=== PATIENT | male | born 1980 | race Caucasian/White ===

== ENCOUNTER 2017-07-09 12:18 | Inpatient (IN) | payer OTHER ==
[2017-07-09 12:44] VITALS: BMI 27.6
--- NOTE | 2017-07-09 17:00 | HP ---
Admission ROS S - [facility] Chief Complaint: I WANT TO GO TO REHAB Allergies/Adverse Reactions: Allergies Allergy/AdvReac Type Severity Reaction Status Date / Time No Known Allergies Allergy Verified 07/09/17 16:33 History of Present Illness: 36 YEARS OLD MALE WITH LONG HISTORY OF COCAINE MARIJUANA NICOTINE DEPENDENCE DENIES MEDICAL ISSUE HAS BIPOLAR II IS ADMITTED TO REHAB Exam Limitations: No Limitations - Ebola screening Have you traveled outside of the country in the last 21 days: No Have you had contact with anyone from an Ebola affected area: No Have you been sick,other than usual withdrawal symptoms: No Do you have a fever: No - Review of Systems Constitutional: Weight Stable EENT: reports: No Symptoms Reported Respiratory: reports: No Symptoms reported Cardiac: reports: No Symptoms Reported GI: reports: No Symptoms Reported : reports: No Symptoms Reported Musculoskeletal: reports: No Symptoms Reported Integumentary: reports: Change in Color (RIGHT INNER FORE ARM SCAR FROM 04/2017 GLASS CUT) Neuro: reports: No Symptoms reported Endocrine: reports: No Symptoms Reported Hematology: reports: No Symptoms Reported Psychiatric: reports: Judgement Intact, Orientated x3, Anxious, Depressed Other Systems: Reviewed and Negative Patient History - Patient Medical History Hx Anemia: No Hx Asthma: No Hx Chronic Obstructive Pulmonary Disease (COPD): No Hx Cancer: Yes (LYMPHOMA 2011 CHEMO) Hx Cardiac Disorders: No Hx Congestive Heart Failure: No Hx Hypertension: No Hx Hypercholesterolemia: No Hx Pacemaker: No HX Cerebrovascular Accident: No Hx Seizures: No Hx Dementia: No Hx Diabetes: No Hx Gastrointestinal Disorders: No Hx Liver Disease: No Hx Genitourinary Disorders: No Hx Sexually Transmitted Disorders: No Hx Renal Disease (ESRD): No Hx Thyroid Disease: No Hx Human Immunodeficiency Virus (HIV): No Hx Hepatitis C: No Hx Depression: No Hx Suicide Attempt: Yes (04/2017 GLASS CUT) Hx Bipolar Disorder: Yes Hx Schizophrenia: No - Patient Surgical History Past Surgical History: No - PPD History Previous Implant?: Yes Documented Results: Negative w/o proof Implanted On Prior [facility] Admission?: No PPD to be Administered?: Yes - Smoking Cessation Smoking history: Current every day smoker Have you smoked in the past 12 months: Yes Aproximately how many cigarettes per day: 20 Cigars Per Day: 0 Hx Chewing Tobacco Use: No Initiated information on smoking cessation: Yes 'Breaking Loose' booklet given: 07/09/17 - Substance & Tx. History Hx Alcohol Use: No Hx Substance Use: Yes Substance Use Type: Cocaine, Marijuana Hx Substance Use Treatment: Yes (02/2017 [facility]) - Substances Abused Marijuana/Hashish Route: Smoking Frequency: Daily Amount used: $50 Age of first use: 18 Date of Last Use: 07/09/17 Alcohol Route: Oral Frequency: 1-2 times per week Amount used: 6pk beers Age of first use: 15 Date of Last Use: 06/25/17 Cocaine Route: Inhalation Frequency: 1-2 times per week Amount used: 1 G Age of first use: 27 Date of Last Use: 06/25/17 Family Disease History - Family Disease History Family Disease History: Heart Disease: Mother, Other: Father () Admission Physical Exam S - Vital Signs Vital Signs: Vital Signs - 24 hr 07/09/17 12:26 Temperature 98.3 F Pulse Rate 118 H Respiratory 20 Rate Blood Pressure 119/76 - Physical General Appearance: Yes: No Apparent Distress, Nourished, Appropriately Dressed HEENTM: Yes: Hearing grossly Normal, Normal ENT Inspection, Normocephalic, Normal Voice Respiratory: Yes: Chest Non-Tender, Lungs Clear, Normal Breath Sounds, No Respiratory Distress, No Accessory Muscle Use Neck: Yes: Supple, Trachea in good position Breast: Yes: Breasts Symetrical Cardiology: Yes: Regular Rhythm, S1, S2, Tachycardia Abdominal: Yes: Normal Bowel Sounds, Non Tender, Soft Genitourinary: Yes: Within Normal Limits Back: Yes: Normal Inspection Musculoskeletal: Yes: full range of Motion, Gait Steady Extremities: Yes: Normal Inspection (SCAR RIGHT FORE ARM), Normal Range of Motion, Non-Tender Neurological: Yes: Fully Oriented, Alert, Motor Strength 5/5, Normal Response, Depressed Affect Integumentary: Yes: Warm, Other (RIGHT ARM SCAR RIGHT LUMBAR SCAR - CHILD WU FALL) Lymphatic: Yes: Within Normal Limits - Diagnostic (1) Cocaine dependence, uncomplicated Current Visit: Yes Status: Acute (2) Cannabis dependence, uncomplicated Current Visit: Yes Status: Acute (3) Nicotine dependence Current Visit: Yes Status: Acute Qualifiers: Nicotine product type: cigarettes Substance use status: in withdrawal Qualified Code(s): F17.213 - Nicotine dependence, cigarettes, with withdrawal (4) Bipolar II disorder Current Visit: Yes Status: Suspected Cleared for Admission [facility] - Detox or Rehab [facility] Level of Care: Observation Bed Detox Regimen/Protocol: Not Applicable Claeared for Rehab Admission: Yes [facility] Breath Alcohol Content Breath Alcohol Content: 0 Urine Drug Screen - Results Drug Screen Negative: No Urine Drug Screen Results: THC-Marijuana
[2017-07-09] MEDS ORDERED: MAGNESIUM HYDROX 2400MG/30ML ORAL SUSPENSION 30 ML CUP PO PRN (17:11)
[2017-07-09] MEDS ORDERED: MAGNESIUM CITRATE 300 ML BOTTLE PO PRN (17:11)
[2017-07-09] MEDS ORDERED: LOPERAMIDE HCL 2 MG CAPSULE PO PRN (17:11)
[2017-07-09] MEDS ORDERED: MENTHOL/PHENOL 1 EACH UD MM PRN (17:11)
[2017-07-09] MEDS ORDERED: hydrOXYzine PAMOATE 50 MG CAPSULE (FP) PO PRN (17:11)
[2017-07-09] MEDS ORDERED: MAG HYDROX/AL HYDROX/SIMETH 30 ML UNIT-DOSE CUP PO PRN (17:11)
[2017-07-09] MEDS ORDERED: guaiFENesin/D-METHORPHAN HB 10 ML UNIT-DOSE CUPS PO PRN (17:11)
[2017-07-09] MEDS ORDERED: ACETAMINOPHEN 325 MG TABLET (FP) PO PRN (17:11)
[2017-07-09] MEDS ORDERED: P-EPHED 60MG/TRIPROLIDI 2.5MG TABLET PO PRN (17:11)
[2017-07-09] MEDS ORDERED: IBUPROFEN 400 MG TABLET (FP) PO PRN (17:11)
--- NOTE | 2017-07-09 17:14 | HP ---
Admission ROS [facility] Allergies/Adverse Reactions: Allergies Allergy/AdvReac Type Severity Reaction Status Date / Time No Known Allergies Allergy Verified 07/09/17 16:33 - Ebola screening Have you traveled outside of the country in the last 21 days: No Have you had contact with anyone from an Ebola affected area: No Have you been sick,other than usual withdrawal symptoms: No Do you have a fever: No Patient History - Patient Medical History Hx Anemia: No Hx Asthma: No Hx Chronic Obstructive Pulmonary Disease (COPD): No Hx Cancer: Yes (LYMPHOMA 2011 CHEMO) Hx Cardiac Disorders: No Hx Congestive Heart Failure: No Hx Hypertension: No Hx Hypercholesterolemia: No Hx Pacemaker: No HX Cerebrovascular Accident: No Hx Seizures: No Hx Dementia: No Hx Diabetes: No Hx Gastrointestinal Disorders: No Hx Liver Disease: No Hx Genitourinary Disorders: No Hx Sexually Transmitted Disorders: No Hx Renal Disease (ESRD): No Hx Thyroid Disease: No Hx Human Immunodeficiency Virus (HIV): No Hx Hepatitis C: No Hx Depression: No Hx Suicide Attempt: Yes (04/2017 GLASS CUT) Hx Bipolar Disorder: Yes Hx Schizophrenia: No - Patient Surgical History Past Surgical History: No - PPD History Previous Implant?: Yes Documented Results: Negative w/o proof Implanted On Prior [facility] Admission?: No - Smoking Cessation Smoking history: Current every day smoker Have you smoked in the past 12 months: Yes Aproximately how many cigarettes per day: 20 Cigars Per Day: 0 Hx Chewing Tobacco Use: No Initiated information on smoking cessation: Yes 'Breaking Loose' booklet given: 07/09/17 - Substances Abused Marijuana/Hashish Route: Smoking Frequency: Daily Amount used: $50 Age of first use: 18 Date of Last Use: 07/09/17 Alcohol Route: Oral Frequency: 1-2 times per week Amount used: 6pk beers Age of first use: 15 Date of Last Use: 06/25/17 Cocaine Route: Inhalation Frequency: 1-2 times per week Amount used: 1 G Age of first use: 27 Date of Last Use: 06/25/17 Family Disease History - Family Disease History Family Disease History: Heart Disease: Mother, Other: Father () Admission Physical Exam S - Vital Signs Vital Signs: Vital Signs - 24 hr 07/09/17 12:26 Temperature 98.3 F Pulse Rate 118 H Respiratory 20 Rate Blood Pressure 119/76 - Diagnostic (1) Cocaine dependence, uncomplicated Current Visit: Yes Status: Acute (2) Cannabis dependence, uncomplicated Current Visit: Yes Status: Acute (3) Nicotine dependence Current Visit: Yes Status: Acute Qualifiers: Nicotine product type: cigarettes Substance use status: in withdrawal Qualified Code(s): F17.213 - Nicotine dependence, cigarettes, with withdrawal (4) Bipolar II disorder Current Visit: Yes Status: Suspected [facility] Breath Alcohol Content Breath Alcohol Content: 0 Urine Drug Screen - Results Drug Screen Negative: No Urine Drug Screen Results: THC-Marijuana Inpatient Rehab Admission - Initial Determination Are CD services needed?: Yes Free of communicable disease: Yes Not in need of hospitalization: Yes - Rehab Admission Criteria Previous failed treatment: Yes Poor recovery environment: Yes Comorbidities: Yes Lacks judgement: No Patient is meeting Inpatient Rehab admission criteria:: Yes
[2017-07-09] MEDS ORDERED: TUBERCULIN PPD 5 TU/0.1ML VIAL ID ONE (20:26)
[2017-07-09] MEDS: THIAMINE HCL 100 MG TABLET (FP) PO SCH (21:33)
[2017-07-09] MEDS: diphenhydrAMINE HCL 50 MG CAPSULE PO PRN (21:33)
[2017-07-09] MEDS: NICOTINE POLACRILEX 4 MG GUM BC PRN (21:37)
[2017-07-09 21:54] LABS: URINE APPEARANCE CLEAR; URINE BILIRUBIN NEGATIVE (NEGATIVE); URINE BLOOD NEGATIVE (NEGATIVE); URINE COLOR STRAW; URINE GLUCOSE (UA) NEGATIVE (NEGATIVE); URINE KETONE NEGATIVE (NEGATIVE); URINE LEUK ESTERASE NEGATIVE (NEGATIVE); URINE NITRITE NEGATIVE (NEGATIVE); URINE PROTEIN NEGATIVE (NEGATIVE); URINE UROBILINOGEN NEGATIVE mg/dL (0.2-1.0)
[2017-07-10 09:46] LABS: MCH 27.1 pg (25.7-33.7); MCHC 33.4 g/dl (32.0-35.9); PLATELET COUNT 225 K/MM3 (134-434); RDW 13.8 % (11.9-15.9); WHITE BLOOD COUNT 8.6 K/mm3 (4.0-10.0)
[2017-07-10 09:53] LABS: ALBUMIN 3.8 g/dl (3.4-5.0); ALK PHOS 70 U/L (45-117); ANION GAP 7 (8-16); BILIRUBIN,TOTAL 0.2 mg/dL (0.2-1.0); CALCIUM 8.7 mg/dL (8.5-10.1); CO2 26 mmol/L (21-32); CREATININE 0.8 mg/dL (0.7-1.3); GLUCOSE,RANDOM 90 mg/dL (74-106); SGOT/AST 18 U/L (15-37); SGPT/ALT 41 U/L (12-78); TOT PROT 7.1 g/dl (6.4-8.2)
--- NOTE | 2017-07-10 09:54 | EKG ---
Test Reason : Blood Pressure : / mmHG Vent. Rate : 065 BPM Atrial Rate : 065 BPM P-R Int : 182 ms QRS Dur : 092 ms QT Int : 406 ms P-R-T Axes : 041 066 028 degrees QTc Int : 422 ms NORMAL SINUS RHYTHM NONSPECIFIC ST ABNORMALITY NO PREVIOUS ECGS AVAILABLE Confirmed by XIOMARA RENDON MD ([id number]) on 07/10/2017 9:54:11 AM Referred By: Kalen SMITH Confirmed By:XIOMARA RENDON MD
[2017-07-10 10:14] LABS: HIV 1 & 2 AB NEGATIVE; HIV 1 AGp24 NEGATIVE
[2017-07-10] MEDS: PRENATAL VITAMINS W/ FOLIC ACID TABLET (FP) PO SCH (10:22)
[2017-07-10] MEDS: NICOTINE 21 MG/24 HOURS TOPICAL PATCH TD SCH (10:22)
[2017-07-10] MEDS: NICOTINE POLACRILEX 4 MG GUM BC PRN ×3 (10:23→21:41)
--- NOTE | 2017-07-10 12:09 | HP ---
Psychiatrist Admission - Data Date of interview: 07/10/17 Admission source: [facility] Identifying data: THis is the first inpatient rehabilitation admisison for this 36 year old marries male father of 2(7 and 13), residing in the [place] with his family , he is unemployed and supported on SSI. Medical History: Reports a good physical health, smokes cigarettes 1 PPD. Psychiatric History: Patient reports extensive history of mental illness, several "more than 20 " psychiatric hospitalizations, first psychiatric admission in 2005 for manic episode, was admitted to [facility], most recent hospitalization 4 weeks ago to [facility] from where was referred to . He reports he belongs to [place] ACT team. he under the care of and on Depakote 500 mg po bid, Prolixin 5 mg po bid and on Prolixin IM injection every 2 weeks, states he had his injection on 07/09/17, but unable to recall the dosage. He reports was diagnosed as Bipolar Disorder. Physical/Sexual Abuse/Trauma History: Denies Vital Signs: Vital Signs - 24 hr 07/09/17 07/10/17 07/10/17 12:26 00:53 03:30 Temperature 98.3 F Pulse Rate 118 H Respiratory 20 16 16 Rate Blood Pressure 119/76 07/10/17 07:17 Temperature 97.4 F L Pulse Rate 65 Respiratory 18 Rate Blood Pressure 101/72 Allergies/Adverse Reactions: Allergies Allergy/AdvReac Type Severity Reaction Status Date / Time No Known Allergies Allergy Verified 07/09/17 16:33 Date of last physical exam: 07/09/17 Concur with the findings of this exam: Yes - Substance Abuse/Tx History Hx Alcohol Use: Yes (on weekend) Hx Substance Use: Yes Substance Use Type: Alcohol (started at age of 15, 6 pcks of beer), Cocaine (1 g 1-2 times per week), Marijuana ("Sometimes") Hx Substance Use Treatment: Yes Mental Status Exam - Mental Status Exam Alert and Oriented to: Time, Place, Person Cognitive Function: Grossly Intact Patient Appearance: Unkempt Affect: Appropriate, Mood Congruent, Blunted, Constricted Patient Behavior: Appropriate, Cooperative Speech Pattern: Clear, Appropriate Voice Loudness: Normal Thought Process: Intact Thought Disorder: Not Present Hallucinations: Denies Suicidal Ideation: Denies Homicidal Ideation: Denies Insight/Judgement: Fair Sleep: Fair Appetite: Fair Muscle strength/Tone: Normal Psychiatric Findings - Problem List ([place] 1, 2,3) (1) Nicotine dependence Current Visit: Yes Status: Acute Qualifiers: Nicotine product type: cigarettes Substance use status: in withdrawal Qualified Code(s): F17.213 - Nicotine dependence, cigarettes, with withdrawal (2) Alcohol dependence Current Visit: Yes Status: Acute (3) Cocaine delirium Current Visit: Yes Status: Acute (4) Cocaine dependence Current Visit: Yes Status: Acute (5) Cannabis abuse Current Visit: Yes Status: Acute (6) Schizoaffective disorder, bipolar type Current Visit: Yes Status: Acute - Initial Treatment Plan Initial Treatment Plan: will continue his current medications, will contact act team to verify dosage of IM injection.
[2017-07-10] MEDS: hydrOXYzine PAMOATE 50 MG CAPSULE (FP) PO SCH (21:40)
[2017-07-10] MEDS: DIVALPROEX SODIUM 500 MG TABLET E.C. PO SCH (21:40)
[2017-07-10] MEDS: THIAMINE HCL 100 MG TABLET (FP) PO SCH (21:40)
[2017-07-11] MEDS: PRENATAL VITAMINS W/ FOLIC ACID TABLET (FP) PO SCH (10:17)
[2017-07-11] MEDS: DIVALPROEX SODIUM 500 MG TABLET E.C. PO SCH ×2 (10:17→21:25)
[2017-07-11] MEDS: NICOTINE 21 MG/24 HOURS TOPICAL PATCH TD SCH (10:18)
[2017-07-11] MEDS: hydrOXYzine PAMOATE 50 MG CAPSULE (FP) PO SCH ×2 (10:18→21:25)
[2017-07-11] MEDS: NICOTINE POLACRILEX 4 MG GUM BC PRN ×4 (10:19→20:02)
[2017-07-11] MEDS: THIAMINE HCL 100 MG TABLET (FP) PO SCH (21:25)
[2017-07-12] MEDS: DIVALPROEX SODIUM 500 MG TABLET E.C. PO SCH ×2 (10:18→21:24)
[2017-07-12] MEDS: hydrOXYzine PAMOATE 50 MG CAPSULE (FP) PO SCH ×2 (10:18→21:24)
[2017-07-12] MEDS: PRENATAL VITAMINS W/ FOLIC ACID TABLET (FP) PO SCH (10:18)
[2017-07-12] MEDS: NICOTINE 21 MG/24 HOURS TOPICAL PATCH TD SCH (10:19)
[2017-07-12] MEDS: NICOTINE POLACRILEX 4 MG GUM BC PRN ×5 (10:20→19:48)
[2017-07-12] MEDS: THIAMINE HCL 100 MG TABLET (FP) PO SCH (21:24)
[2017-07-13] MEDS: diphenhydrAMINE HCL 50 MG CAPSULE PO PRN (01:46)
[2017-07-13 07:36] VITALS: BP 104/74; PULSE 71; TEMP 97.5
[2017-07-13] MEDS: PRENATAL VITAMINS W/ FOLIC ACID TABLET (FP) PO SCH (10:15)
[2017-07-13] MEDS: hydrOXYzine PAMOATE 50 MG CAPSULE (FP) PO SCH (10:15)
[2017-07-13] MEDS: NICOTINE 21 MG/24 HOURS TOPICAL PATCH TD SCH (10:15)
[2017-07-13] MEDS: DIVALPROEX SODIUM 500 MG TABLET E.C. PO SCH (10:15)
--- NOTE | 2017-07-13 11:11 | PN ---
Psychiatric Progress Note Vital Signs: Vital Signs Period Temp Pulse Resp BP Sys/Rodrigues Pulse Ox Last 24 Hr 97.5 F 71-86 16-18 104-135/74-79 Date of Session: 07/13/17 Chief Complaint:: AMA Discharge Note HPI: Patient addressing Alcohol, Cocaine and Cannabis Dependence comorbid with Nicotine Dependence and Schizoaffective Disorder Current Medications: Active Medications Generic Name Dose Route Start Last Admin Trade Name Freq PRN Reason Stop Dose Admin Acetaminophen 650 mg 07/09/17 17:11 Tylenol - PO Q4H PRN PAIN Al Hydroxide/Mg Hydroxide 30 ml 07/09/17 17:11 Mylanta Oral Suspension - PO Q6H PRN DYSPEPSIA Diphenhydramine HCl 50 mg 07/09/17 17:11 07/13/17 01:46 Benadryl - PO 50 mg HSMR1 PRN Administration INSOMNIA Divalproex Sodium 500 mg 07/10/17 22:00 07/13/17 10:15 Depakote - PO 500 mg BID GISELLA Administration Eucalyptus/Menthol/Phenol/Sorbitol 1 each 07/09/17 17:11 Cepastat Lozenge - MM Q4H PRN SORE THROAT Fluphenazine HCl 5 mg 07/10/17 22:00 07/13/17 10:15 Prolixin - PO 5 mg BID GISELLA Administration Guaifenesin 10 ml 07/09/17 17:11 Robitussin Dm - PO Q6H PRN COUGH Hydroxyzine Pamoate 50 mg 07/10/17 22:00 07/13/17 10:15 Vistaril - PO 50 mg BID GISELLA Administration Ibuprofen 400 mg 07/09/17 17:11 Motrin - PO Q6H PRN SEVERE PAIN Loperamide HCl 4 mg 07/09/17 17:11 Imodium - PO Q6H PRN DIARRHEA Magnesium Citrate 300 ml 07/09/17 17:11 Citroma - PO Q48H PRN CONSTIPATION Magnesium Hydroxide 30 ml 07/09/17 17:11 Milk Of Magnesia - PO DAILY PRN CONSTIPATION Nicotine 21 mg 07/10/17 10:00 07/13/17 10:15 Nicoderm Patch - TD 21 mg DAILY GISELLA Administration Nicotine Polacrilex 4 mg 07/09/17 17:11 07/12/17 19:48 Nicorette Gum - BC 4 mg Q2H PRN Administration NICOTINE REPLACEMENT RX Multivit/Folic Acid/Iron 1 tab 07/10/17 10:00 07/13/17 10:15 Vitamins ([facility]) - PO 1 tab DAILY GISELLA Administration Pseudoephedrine/Triprolidine 1 combo 07/09/17 17:11 Actifed - PO TID PRN NASAL CONGESTION Thiamine HCl 100 mg 07/09/17 22:00 07/12/17 21:24 Vitamin B1 - PO 100 mg HS GISELLA Administration Current Side Effect: No Lab tests ordered: Yes Lab tests reviewed: Yes Provider note:: Patient has decided not to complete this program and wants to leave against medical advice citing:"I cannot sleep here". He was at a lost to explain what he meant by it. Patient is determined to leave against medical advice despite encouragement to stay and complete this program. Scripts for 30 days supply of his medications( Depakote 50 mg po BID & Prolixin 5 mg po BID) are electronically transmitted to [facility] at [id number] [place] [address]. He is stablr for discharge AM Total face to face time:: 25 Mental Status Exam - Mental Status Exam Alert and Oriented to: Time, Place, Person Cognitive Function: Fair Mood: Hopeful, Euthymic Affect: Appropriate Patient Behavior: Cooperative Speech Pattern: Clear Voice Loudness: Normal Thought Process: Intact, Goal Oriented Thought Disorder: Not Present Hallucinations: Denies Homicidal Ideation: Denies Insight/Judgement: Poor Sleep: Fair Appetite: Good Muscle strength/Tone: Normal Gait/Station: Normal Psychiatric Treatment Plan - Problem List (1) Alcohol dependence Current Visit: Yes (2) Cocaine dependence Current Visit: Yes (3) Cannabis abuse Current Visit: Yes (4) Nicotine dependence Current Visit: Yes Qualifiers: Nicotine product type: cigarettes Substance use status: in withdrawal Qualified Code(s): F17.213 - Nicotine dependence, cigarettes, with withdrawal; F17.213 - Nicotine dependence, cigarettes, with withdrawal (5) Schizoaffective disorder, bipolar type Current Visit: Yes Initial treatment plan: Patient is leaving AMA
== END 2017-07-13 11:26 | disposition left against medical advice (07) | DRG 894 ==
LOC: YASAS 12:18 → Y5N 16:40
PROVIDERS: ADMIT Psychiatry & Neurology Psychiatry; ATTEND Psychiatry & Neurology Psychiatry
PROC: HZ42ZZZ Group Counseling for Substance Abuse Treatment, Cognitive-Behavioral (ICD-10-PCS; principal; 2017-07-09)
DX: F10.20 Alcohol dependence, uncomplicated (principal); F31.81 Bipolar II disorder; F14.221 Cocaine dependence with intoxication delirium; F12.10 Cannabis abuse, uncomplicated; F17.213 Nicotine dependence, cigarettes, with withdrawal; F25.0 Schizoaffective disorder, bipolar type; Z92.21 Personal history of antineoplastic chemotherapy; Z91.5 Personal history of self-harm; Z85.72 Personal history of non-Hodgkin lymphomas
CPT/HCPCS: 36415; 80053; 80164; 81003; 85027; 86593; 86803; 87389; 93005; 93010

== ENCOUNTER 2020-06-11 17:50 | Inpatient (IN) | payer OTHER ==
[2020-06-11 19:12] VITALS: BMI 23.5
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
[2020-06-11] MEDS ORDERED: ACETAMINOPHEN 325 MG TABLET (FP) PO PRN ×2 (20:32)
[2020-06-11] MEDS ORDERED: MAGNESIUM HYDROX 2400MG/30ML ORAL SUSPENSION 30 ML CUP PO PRN (20:32)
[2020-06-11] MEDS ORDERED: METHOCARBAMOL 500 MG TABLET PO PRN (20:32)
[2020-06-11] MEDS ORDERED: MAG HYDROX/AL HYDROX/SIMETH 30 ML UNIT-DOSE CUP PO PRN (20:32)
[2020-06-11] MEDS ORDERED: MAGNESIUM CITRATE 300 ML BOTTLE PO PRN (20:32)
[2020-06-11] MEDS ORDERED: DICYCLOMINE HCL 10 MG CAPSULE PO PRN (20:32)
[2020-06-11] MEDS ORDERED: guaiFENesin 200 MG/10 ML 10 ML UNIT-DOSE CUPS PO PRN (20:32)
[2020-06-11] MEDS ORDERED: IBUPROFEN 400 MG TABLET (FP) PO PRN (20:32)
[2020-06-11] MEDS ORDERED: hydrOXYzine PAMOATE 25 MG CAPSULE (FP) PO PRN (20:32)
[2020-06-11] MEDS ORDERED: MENTHOL/PHENOL 1 EACH UD MM PRN (20:32)
[2020-06-11] MEDS ORDERED: ONDANSETRON *ODT* 4 MG TABLET SL PRN (20:32)
[2020-06-11] MEDS ORDERED: P-EPHED 60MG/TRIPROLIDI 2.5MG TABLET PO PRN (20:32)
[2020-06-11] MEDS ORDERED: BISMUTH SUBSALICYLATE 524 MG/30 ML UD PO PRN (20:32)
[2020-06-11] MEDS ORDERED: cloNIDine HCL 0.1 MG TABLET PO PRN (20:35)
[2020-06-11] MEDS: diazePAM 5 MG TABLET PO SCH (22:59)
[2020-06-11] MEDS: MELATONIN 5 MG TABLETS PO SCH (22:59)
[2020-06-11] MEDS: THIAMINE HCL 100 MG TABLET (FP) PO SCH (23:00)
[2020-06-12] MEDS: diazePAM 5 MG TABLET PO SCH ×3 (06:33→22:27)
[2020-06-12 10:25] LABS: HEMATOCRIT 41.3 % (35.4-49); HEMOGLOBIN 13.8 GM/dL (11.7-16.9); MCH 27.5 pg (25.7-33.7); MCHC 33.4 g/dl (32.0-35.9); MEAN CELL VOLUME 82.3 fl (80-96); PLATELET COUNT 261 K/MM3 (134-434); RBC 5.02 M/mm3 (4.00-5.60); RDW 13.6 % (11.9-15.9); WHITE BLOOD COUNT 7.9 K/mm3 (4.0-10.0)
[2020-06-12] MEDS: PRENATAL VITAMINS W/ FOLIC ACID TABLET (FP) PO SCH (10:28)
[2020-06-12] MEDS: NICOTINE 21 MG/24 HOURS TOPICAL PATCH TD SCH (10:28)
[2020-06-12 10:36] LABS: ALBUMIN 3.7 g/dl (3.4-5.0); BILIRUBIN,TOTAL 0.4 mg/dL (0.2-1); BLOOD UREA NITROGEN 11.5 mg/dL (7-18); CALCIUM 8.9 mg/dL (8.5-10.1); CREATININE 0.9 mg/dL (0.55-1.3); POTASSIUM 4.1 mmol/L (3.5-5.1)
--- NOTE | 2020-06-12 10:39 | EKG ---
Test Reason : Blood Pressure : / mmHG Vent. Rate : 070 BPM Atrial Rate : 070 BPM P-R Int : 176 ms QRS Dur : 090 ms QT Int : 420 ms P-R-T Axes : 059 081 045 degrees QTc Int : 453 ms NORMAL SINUS RHYTHM NORMAL ECG WHEN COMPARED WITH ECG OF 09-JUL-2017 21:53, NO SIGNIFICANT CHANGE WAS FOUND Confirmed by Dar Medina MD ([id number]) on 06/12/2020 10:38:37 AM Referred By: Wagner Wakefield Confirmed By:Dar Medina MD
--- NOTE | 2020-06-12 13:04 | PN ---
S CIWA - CIWA Score Nausea/Vomitin-Mild Nausea/No Vomiting Muscle Tremors: 2 Anxiety: 2 Agitation: 1-Slight > Activity Paroxysmal Sweats: 1-Minimal Palms Moist Orientation: 0-Oriented Tacttile Disturbances: 0-None Auditory Disturbances: 0-None Visual Disturbances: 0-None Headache: 0-None Present CIWA-Ar Total Score: 7 BHS Progress Note (SOAP) Subjective: 39 years old male was admitted on 06/11/20 for alcohol withdrawal sx mangement treating with valium detox regiment tired resting in bed ate small amount of breakfast and lunch mbi 23.5 ensure 120 ml po tid with meals Objective: 06/12/20 13:06 Vital Signs - 24 hr 06/11/20 06/11/20 06/11/20 19:11 22:21 22:54 Temperature 97.7 F 97.7 F 97.3 F L Pulse Rate 90 90 66 Respiratory 20 20 18 Rate Blood Pressure 118/81 118/81 127/100 O2 Sat by Pulse 100 Oximetry (%) 06/12/20 06/12/20 06:26 08:44 Temperature 97.6 F 97.5 F L Pulse Rate 72 92 H Respiratory 18 20 Rate Blood Pressure 104/69 98/63 O2 Sat by Pulse 97 Oximetry (%) Laboratory Tests 06/12/20 06/12/20 06/12/20 08:15 08:15 08:15 WBC 7.9 RBC 5.02 Hgb 13.8 Hct 41.3 MCV 82.3 MCH 27.5 MCHC 33.4 RDW 13.6 Plt Count 261 MPV 9.0 Sodium 141 Potassium 4.1 Chloride 107 Carbon Dioxide 27 Anion Gap 7 L BUN 11.5 Creatinine 0.9 Est GFR (CKD-EPI)AfAm 126.02 Est GFR (CKD-EPI)NonAf 108.73 Random Glucose 78 Calcium 8.9 Total Bilirubin 0.4 AST 12 L ALT 23 Alkaline Phosphatase 70 Total Protein 7.0 Albumin 3.7 Syphilis Serology Non-reactive 06/12/20 13:06 covid pending Assessment: 06/12/20 13:06 alcohol withdrawal Plan: valium regiment
--- NOTE | 2020-06-12 14:45 | CONSULT ---
[facility] Psychiatric Consult - Data Date of interview: 06/12/20 Admission source: [facility] Identifying data: Revisit to [facility] and admission to [address] [place] [address] for this 39 y/o English-born male self-referred for detoxification treatment. TERA issues : heroin, crack/cocaine, nicotine, cannabis, alcohol. Patient is , a father of two, domiciled (lives with his biological mother), unemployed and supported on SSI benefits. Substance Abuse History: Discussed with the patient. TERA profile as follows : Smoking history: Current every day smoker. Have you smoked in the past 12 months: Yes. Aproximately how many cigarettes per day: 20. Cigars Per Day: 0. Hx Chewing Tobacco Use: No. Initiated information on smoking cessation: Yes. 'Breaking Loose' booklet given: 06/11/20. - Substance & Tx. History. Hx Alcohol Use: Yes. Substance Use Type: None, Alcohol, Cocaine, Prescribed ([facility] [place]). Hx Substance Use Treatment: Yes ([facility]). - Substances abused. Heroin. Substance route: Inhalation. Frequency: 1-3 times last 30 days (1X). Amount used: 1 GM. Age of first use: 39. Date of last use: 06/11/20 (1ST TIME SINCE 12/29). Alcohol. Other (specify): BEER. Substance route: Oral. Frequency: Daily. Amount used: 12-120Z CANS. Age of first use: 20. Date of last use: 06/10/20. Cocaine. Substance route: Inhalation. Frequency: Daily. Amount used: 1GM. Age of first use: 20. Date of last use: 06/10/20. History of multiple treatment failures. Medical History: Patient endorses good general health. Psychiatric History: Patient presents with a history of multiple psychiatric hospitalizations. Mostly at [facility]. Mr Kiel has been diagnosed with Bipolar Disorder. He is currently followed by the [facility] team (Dr Lyman / [phone]) for medication management (prolixin decanoate 37.5 mg IM q 3 weeks + seroquel 400 mg/hs + depakote 500 mg/bid). Last injection of prolixin decanoate was dispensed on 06/08/20 as per self-report (next injection due in two weeks). Patient denies history of suicide attempts. Physical/Sexual Abuse/Trauma History: Patient denies history of abuse. Additional Comment: Urine drug screen results: THC-Marijuana, CONOR-Cocaine, FEN- Fentanyl. Noted. Mental Status Exam - Mental Status Exam Alert and Oriented to: Time, Place, Person Cognitive Function: Good Patient Appearance: Well Groomed Mood: Withdrawn Affect: Appropriate, Normal Range Patient Behavior: Fatigued, Appropriate, Cooperative Speech Pattern: Clear, Appropriate Voice Loudness: Normal Thought Process: Goal Oriented Thought Disorder: Not Present Hallucinations: Denies Suicidal Ideation: Denies Homicidal Ideation: Denies Insight/Judgement: Poor Sleep: Poorly, Difficulty falling asleep Appetite: Good Gait/Station: Normal Psychiatric Findings - Problem List ([place] 1, 2,3) (1) Alcohol dependence with withdrawal, uncomplicated Current Visit: Yes Status: Acute (2) Cocaine dependence Current Visit: Yes Status: Chronic (3) Cannabis abuse Current Visit: Yes Status: Acute (4) Nicotine dependence Current Visit: Yes Status: Chronic Qualifiers: Nicotine product type: cigarettes Substance use status: in withdrawal Qualified Code(s): F17.213 - Nicotine dependence, cigarettes, with withdrawal (5) Schizoaffective disorder, bipolar type Current Visit: Yes Status: Acute (6) Substance induced mood disorder Current Visit: Yes Status: Chronic (7) Insomnia Current Visit: Yes Status: Chronic - Initial Treatment Plan Initial Treatment Plan: Psychoeducation. Sleep hygiene. Detoxification. Resumed with the patient's consent : seroquel 300 mg po hs (reduced as a precaution for oversedation) + depakote 500 mg po bid. Side effects/benefits discussed. Consent granted. Valproic acid level : pending. Observation.
[2020-06-12] MEDS: NICOTINE POLACRILEX 2 MG GUM BUC PRN (14:56)
[2020-06-12] MEDS: MELATONIN 5 MG TABLETS PO SCH (22:27)
[2020-06-12] MEDS: THIAMINE HCL 100 MG TABLET (FP) PO SCH (22:27)
[2020-06-12] MEDS: DIVALPROEX SODIUM 500 MG TABLET E.C. PO SCH (22:27)
[2020-06-12] MEDS: QUEtiapine FUMARATE 300 MG TABLET PO SCH (22:27)
[2020-06-13] MEDS: diazePAM 5 MG TABLET PO SCH ×2 (06:08→17:54)
[2020-06-13] MEDS: DIVALPROEX SODIUM 500 MG TABLET E.C. PO SCH ×2 (10:06→23:08)
[2020-06-13] MEDS: diazePAM 5 MG TABLET PO PRN ×2 (10:06→14:59)
[2020-06-13] MEDS: NICOTINE 21 MG/24 HOURS TOPICAL PATCH TD SCH (10:06)
[2020-06-13] MEDS: PRENATAL VITAMINS W/ FOLIC ACID TABLET (FP) PO SCH (10:06)
[2020-06-13] MEDS: NICOTINE POLACRILEX 2 MG GUM BUC PRN ×2 (10:07→12:30)
[2020-06-13 11:10] LABS: PH,URINE 7.5 (5.0-8.0); URINE APPEARANCE CLEAR; URINE BILIRUBIN NEGATIVE (NEGATIVE); URINE COLOR YELLOW; URINE GLUCOSE (UA) NEGATIVE (NEGATIVE); URINE KETONE NEGATIVE (NEGATIVE); URINE LEUK ESTERASE NEGATIVE (NEGATIVE); URINE NITRITE NEGATIVE (NEGATIVE); URINE PROTEIN NEGATIVE (NEGATIVE)
--- NOTE | 2020-06-13 12:46 | PN ---
S CIWA - CIWA Score Nausea/Vomitin-Mild Nausea/No Vomiting Muscle Tremors: 1-None Visible, but [place] Anxiety: 1-Mildly Anxious Agitation: 0-Normal Activity Paroxysmal Sweats: No Perspiration Orientation: 0-Oriented Tacttile Disturbances: 0-None Auditory Disturbances: 0-None Visual Disturbances: 0-None Headache: 0-None Present CIWA-Ar Total Score: 3 S Progress Note (SOAP) Subjective: 39 years old male was admitted on 06/11/20 for alcohol withdrawal sx management treating with valium detox regiment feels better today less anxiousness ate breakfast and lunch in room tolerated food well discuss aftercare with staff mr odell wants to go to psychiatric hospital for alcohol abuse treatment Objective: 06/13/20 12:45 Laboratory Tests 06/12/20 06/12/20 06/12/20 08:15 08:15 08:15 WBC 7.9 RBC 5.02 Hgb 13.8 Hct 41.3 MCV 82.3 MCH 27.5 MCHC 33.4 RDW 13.6 Plt Count 261 MPV 9.0 Sodium 141 Potassium 4.1 Chloride 107 Carbon Dioxide 27 Anion Gap 7 L BUN 11.5 Creatinine 0.9 Est GFR (CKD-EPI)AfAm 126.02 Est GFR (CKD-EPI)NonAf 108.73 Random Glucose 78 Calcium 8.9 Total Bilirubin 0.4 AST 12 L ALT 23 Alkaline Phosphatase 70 Total Protein 7.0 Albumin 3.7 Urine Color Urine Appearance Urine pH Ur Specific [place] Urine Protein Urine Glucose (UA) Urine Ketones Urine Blood Urine Nitrite Urine Bilirubin Urine Urobilinogen Ur Leukocyte Esterase Valproic Acid Syphilis Serology Non-reactive 06/12/20 06/13/20 08:30 08:10 WBC RBC Hgb Hct MCV MCH MCHC RDW Plt Count MPV Sodium Potassium Chloride Carbon Dioxide Anion Gap BUN Creatinine Est GFR (CKD-EPI)AfAm Est GFR (CKD-EPI)NonAf Random Glucose Calcium Total Bilirubin AST ALT Alkaline Phosphatase Total Protein Albumin Urine Color Yellow Urine Appearance Clear Urine pH 7.5 Ur Specific [place] 1.020 Urine Protein Negative Urine Glucose (UA) Negative Urine Ketones Negative Urine Blood Negative Urine Nitrite Negative Urine Bilirubin Negative Urine Urobilinogen 1.0 Ur Leukocyte Esterase Negative Valproic Acid 41.7 L Syphilis Serology 06/13/20 12:46 covid pending Assessment: 06/13/20 12:46 alcohol withdrawal Plan: valiium regiment
[2020-06-13 21:55] VITALS: BP 105/84; PULSE 99; TEMP 96.4
[2020-06-13] MEDS: QUEtiapine FUMARATE 300 MG TABLET PO SCH (23:08)
[2020-06-13] MEDS: THIAMINE HCL 100 MG TABLET (FP) PO SCH (23:08)
[2020-06-13] MEDS: MELATONIN 5 MG TABLETS PO SCH (23:09)
[2020-06-14] MEDS ORDERED: diazePAM 5 MG TABLET PO ONE (06:00)
--- NOTE | 2020-06-14 12:20 | DS ---
[facility] Detox Discharge Summary Admission Date: 06/11/20 Discharge Date: 06/14/20 - History Present History: Alcohol Dependence, Cannabis Dependence, Cocaine Dependence Additional Comments: alert,oriented x 3 ambulation on the unit lung clear on auscultation bilaterally abdomen soft,no pain,no distension detox completed,no withdrawal symptom stable for discharge total spending on discharge 35 minutes declined rehab follow up with after care program as arrangement by counselor Pertinent Past History: schizoaffective disorder - Physical Exam Results Vital Signs: Vital Signs Temperature 96.4 F L 06/13/20 20:38 Pulse Rate 99 H 06/13/20 20:38 Respiratory Rate 18 06/13/20 20:38 Blood Pressure 105/84 06/13/20 20:38 O2 Sat by Pulse Oximetry (%) 98 06/13/20 20:38 Pertinent Admission Physical Exam Findings: withdrawal signs and symptom Laboratory Last Values WBC 7.9 K/mm3 (4.0-10.0) 06/12/20 08:15 RBC 5.02 M/mm3 (4.00-5.60) 06/12/20 08:15 Hgb 13.8 GM/dL (11.7-16.9) 06/12/20 08:15 Hct 41.3 % (35.4-49) 06/12/20 08:15 MCV 82.3 fl (80-96) 06/12/20 08:15 MCH 27.5 pg (25.7-33.7) 06/12/20 08:15 MCHC 33.4 g/dl (32.0-35.9) 06/12/20 08:15 RDW 13.6 % (11.9-15.9) 06/12/20 08:15 Plt Count 261 K/MM3 (134-434) 06/12/20 08:15 MPV 9.0 fl (7.5-11.1) 06/12/20 08:15 Sodium 141 mmol/L (136-145) 06/12/20 08:15 Potassium 4.1 mmol/L (3.5-5.1) 06/12/20 08:15 Chloride 107 mmol/L (98-107) 06/12/20 08:15 Carbon Dioxide 27 mmol/L (21-32) 06/12/20 08:15 Anion Gap 7 MMOL/L (8-16) L 06/12/20 08:15 BUN 11.5 mg/dL (7-18) 06/12/20 08:15 Creatinine 0.9 mg/dL (0.55-1.3) 06/12/20 08:15 Est GFR (CKD-EPI)AfAm 126.02 06/12/20 08:15 Est GFR (CKD-EPI)NonAf 108.73 06/12/20 08:15 Random Glucose 78 mg/dL (74-106) 06/12/20 08:15 Calcium 8.9 mg/dL (8.5-10.1) 06/12/20 08:15 Total Bilirubin 0.4 mg/dL (0.2-1) 06/12/20 08:15 AST 12 U/L (15-37) L 06/12/20 08:15 ALT 23 U/L (13-61) 06/12/20 08:15 Alkaline Phosphatase 70 U/L (45-117) 06/12/20 08:15 Total Protein 7.0 g/dl (6.4-8.2) 06/12/20 08:15 Albumin 3.7 g/dl (3.4-5.0) 06/12/20 08:15 Urine Color Yellow 06/12/20 08:30 Urine Appearance Clear 06/12/20 08:30 Urine pH 7.5 (5.0-8.0) 06/12/20 08:30 Ur Specific [place] 1.020 (1.010-1.035) 06/12/20 08:30 Urine Protein Negative (NEGATIVE) 06/12/20 08:30 Urine Glucose (UA) Negative (NEGATIVE) 06/12/20 08:30 Urine Ketones Negative (NEGATIVE) 06/12/20 08:30 Urine Blood Negative (NEGATIVE) 06/12/20 08:30 Urine Nitrite Negative (NEGATIVE) 06/12/20 08:30 Urine Bilirubin Negative (NEGATIVE) 06/12/20 08:30 Urine Urobilinogen 1.0 mg/dL (0.2-1.0) 06/12/20 08:30 Ur Leukocyte Esterase Negative (NEGATIVE) 06/12/20 08:30 Valproic Acid 41.7 ug/mL (50-100) L 06/13/20 08:10 Syphilis Serology Non-reactive (NONREACTIVE) 06/12/20 08:15 COVID-19 ([facility]) Not detected (Not Detected) 06/11/20 20:20 Vital Signs Temperature 96.4 F L 06/13/20 20:38 Pulse Rate 99 H 06/13/20 20:38 Respiratory Rate 18 06/13/20 20:38 Blood Pressure 105/84 06/13/20 20:38 O2 Sat by Pulse Oximetry (%) 98 06/13/20 20:38 - Treatment Hospital Course: Detox Protocol Followed, Detoxed Safely, Responded well, Discharged Condition Good Patient has Accepted a Rehab Referral to: declined - Medication Discharge Medications: Ambulatory Orders Divalproex [Depakote -] 500 mg PO BID #60 mg 07/13/17 Clonazepam [Klonopin] 1 mg PO HS 06/11/20 Fluphenazine HCl Injection [Prolixin Injection -] 37.5 mg IM MONTHLY 06/11/20 Quetiapine Fumarate [Seroquel -] 400 mg PO HS 06/11/20 - AMA Did Patient Leave Against Medical Advice: No
== END 2020-06-14 09:41 | disposition home or self-care (01) | DRG 897 ==
LOC: YASAS 17:50 → Y3N 21:41
PROVIDERS: ADMIT Allergy & Immunology; ATTEND Allergy & Immunology
DX: F10.230 Alcohol dependence with withdrawal, uncomplicated (principal); F14.20 Cocaine dependence, uncomplicated; F12.20 Cannabis dependence, uncomplicated; F17.210 Nicotine dependence, cigarettes, uncomplicated; F25.0 Schizoaffective disorder, bipolar type; F19.24 Other psychoactive substance dependence with psychoactive substance-induced mood disorder; G47.00 Insomnia, unspecified; R45.89 Other symptoms and signs involving emotional state; Z86.19 Personal history of other infectious and parasitic diseases; Z56.0 Unemployment, unspecified; Z91.018 Allergy to other foods
CPT/HCPCS: 36415; 80053; 80164; 81003; 85027; 86780; 93005; 93010; U0003

== ENCOUNTER 2020-08-24 14:17 | Inpatient (IN) | payer OTHER ==
[2020-08-24] MEDS ORDERED: MAGNESIUM CITRATE 300 ML BOTTLE PO PRN (15:35)
[2020-08-24] MEDS ORDERED: ACETAMINOPHEN 325 MG TABLET (FP) PO PRN ×2 (15:35)
[2020-08-24] MEDS ORDERED: IBUPROFEN 400 MG TABLET (FP) PO PRN (15:35)
[2020-08-24] MEDS ORDERED: METHOCARBAMOL 500 MG TABLET PO PRN (15:35)
[2020-08-24] MEDS ORDERED: MAG HYDROX/AL HYDROX/SIMETH 30 ML UNIT-DOSE CUP PO PRN (15:35)
[2020-08-24] MEDS ORDERED: MENTHOL/PHENOL 1 EACH UD MM PRN (15:35)
[2020-08-24] MEDS ORDERED: ONDANSETRON *ODT* 4 MG TABLET SL PRN (15:35)
[2020-08-24] MEDS ORDERED: BISMUTH SUBSALICYLATE 524 MG/30 ML UD PO PRN (15:35)
[2020-08-24] MEDS ORDERED: chlordiazePOXIDE HCL 25 MG CAPSULE PO PRN (15:35)
[2020-08-24] MEDS ORDERED: MAGNESIUM HYDROX 2400MG/30ML ORAL SUSPENSION 30 ML CUP PO PRN (15:35)
[2020-08-24] MEDS ORDERED: NICOTINE POLACRILEX 2 MG GUM BUC PRN (15:35)
[2020-08-24] MEDS ORDERED: diphenhydrAMINE HCL 25 MG CAPSULE (FP) PO ONE (15:37)
[2020-08-24 16:02] VITALS: BMI 25.3
[2020-08-24] MEDS: hydrOXYzine PAMOATE 25 MG CAPSULE (FP) PO SCH ×2 (17:15→23:02)
[2020-08-24] MEDS: chlordiazePOXIDE HCL 25 MG CAPSULE PO SCH ×2 (17:16→23:02)
[2020-08-24] MEDS: MELATONIN 5 MG TABLETS PO SCH (23:01)
[2020-08-24] MEDS: THIAMINE HCL 100 MG TABLET (FP) PO SCH (23:02)
[2020-08-25] MEDS: chlordiazePOXIDE HCL 25 MG CAPSULE PO SCH ×4 (06:33→22:48)
[2020-08-25] MEDS: hydrOXYzine PAMOATE 25 MG CAPSULE (FP) PO SCH ×5 (06:35→22:48)
[2020-08-25] MEDS ORDERED: NICOTINE 21 MG/24 HOURS TOPICAL PATCH TD SCH (10:00)
[2020-08-25] MEDS ORDERED: BACITRACIN 0.9 GM PACKET TP SCH (10:00)
[2020-08-25] MEDS ORDERED: PRENATAL VITAMINS W/ FOLIC ACID TABLET (FP) PO SCH (10:00)
[2020-08-25 11:56] LABS: HEMATOCRIT 40.9 % (35.4-49); MCH 28.4 pg (25.7-33.7); MCHC 34.2 g/dl (32.0-35.9); PLATELET COUNT 250 K/MM3 (134-434); RBC 4.93 M/mm3 (4.00-5.60); RDW 13.5 % (11.9-15.9); WHITE BLOOD COUNT 6.9 K/mm3 (4.0-10.0)
[2020-08-25 11:59] LABS: BLOOD UREA NITROGEN 9.9 mg/dL (7-18); CALCIUM 8.4 mg/dL (8.5-10.1)
[2020-08-25 12:00] LABS: ALBUMIN 3.6 g/dl (3.4-5.0)
[2020-08-25 12:03] LABS: CREATININE 0.9 mg/dL (0.55-1.3)
[2020-08-25 12:04] LABS: TOT PROT 6.7 g/dl (6.4-8.2)
[2020-08-25 13:16] LABS: HIV INTERPRETATION NEGATIVE (NEGATIVE)
[2020-08-25] MEDS: MELATONIN 5 MG TABLETS PO SCH (22:48)
[2020-08-25] MEDS: THIAMINE HCL 100 MG TABLET (FP) PO SCH (22:49)
[2020-08-26] MEDS ORDERED: chlordiazePOXIDE HCL 25 MG CAPSULE PO SCH (05:00)
[2020-08-26] MEDS: hydrOXYzine PAMOATE 25 MG CAPSULE (FP) PO SCH (06:24)
[2020-08-26 09:14] VITALS: BP 114/76; PULSE 95; TEMP 97
[2020-08-27] MEDS ORDERED: chlordiazePOXIDE HCL 10 MG CAPSULE PO PRN
[2020-08-27] MEDS ORDERED: chlordiazePOXIDE HCL 10 MG CAPSULE PO SCH (05:00)
[2020-08-28] MEDS ORDERED: chlordiazePOXIDE HCL 10 MG CAPSULE PO SCH (05:00)
[2020-08-29] MEDS ORDERED: chlordiazePOXIDE HCL 10 MG CAPSULE PO ONE (05:00)
== END 2020-08-26 09:55 | disposition left against medical advice (07) | DRG 894 ==
LOC: YASAS 14:17 → Y6N 15:59
PROVIDERS: ADMIT Allergy & Immunology; ATTEND Allergy & Immunology
PROC: HZ2ZZZZ Detoxification Services for Substance Abuse Treatment (ICD-10-PCS; principal; 2020-08-24)
DX: F10.230 Alcohol dependence with withdrawal, uncomplicated (principal); F14.20 Cocaine dependence, uncomplicated; F31.81 Bipolar II disorder; F12.20 Cannabis dependence, uncomplicated; F17.210 Nicotine dependence, cigarettes, uncomplicated; F25.0 Schizoaffective disorder, bipolar type; F19.24 Other psychoactive substance dependence with psychoactive substance-induced mood disorder; G47.00 Insomnia, unspecified; R20.0 Anesthesia of skin; L29.9 Pruritus, unspecified; Z85.71 Personal history of Hodgkin lymphoma; R63.4 Abnormal weight loss; Z68.25 Body mass index [BMI] 25.0-25.9, adult; Z91.018 Allergy to other foods; Z56.0 Unemployment, unspecified; Z59.0 Homelessness; Z91.19 Patient's noncompliance with other medical treatment and regimen
CPT/HCPCS: 36415; 80053; 85027; 86780; 87389; C9803; U0003

== ENCOUNTER 2022-11-29 19:42 | Inpatient (IN) | payer OTHER ==
[2022-11-29 20:23] VITALS: BMI 21.7
[2022-11-29] MEDS ORDERED: DICYCLOMINE HCL 10 MG CAPSULE PO PRN (21:00)
[2022-11-29] MEDS ORDERED: METHOCARBAMOL 500 MG TABLET PO PRN (21:00)
[2022-11-29] MEDS ORDERED: POLYETHYLENE GLYCOL (HEALTHYLAX) 3350 17 GM PACKET PO PRN (21:00)
[2022-11-29] MEDS ORDERED: BISMUTH SUBSALICYLATE 524 MG/30 ML PO PRN (21:00)
[2022-11-29] MEDS ORDERED: ACETAMINOPHEN 325 MG TABLET (FP) PO PRN ×2 (21:00)
[2022-11-29] MEDS ORDERED: MAG HYDROX/AL HYDROX/SIMETH 30 ML UNIT-DOSE CUP PO PRN (21:00)
[2022-11-29] MEDS ORDERED: IBUPROFEN 400 MG TABLET (FP) PO PRN (21:00)
[2022-11-29] MEDS ORDERED: MAGNESIUM HYDROX 2400MG/30ML ORAL SUSPENSION 30 ML CUP PO PRN (21:00)
[2022-11-29] MEDS ORDERED: NALOXONE HCL (KLOXXADO) 8 MG SPRAY NS PRN (21:00)
[2022-11-29] MEDS ORDERED: NICOTINE POLACRILEX 2 MG GUM BUC PRN (21:00)
[2022-11-29] MEDS ORDERED: BENZOCAINE/MENTHOL (CHLORASEPTIC ) LOZENGE MM PRN (21:00)
[2022-11-29] MEDS ORDERED: LOPERAMIDE HCL 2 MG CAPSULE PO PRN (21:00)
[2022-11-29] MEDS ORDERED: IBUPROFEN 600 MG TABLET (FP) PO PRN (21:00)
[2022-11-29] MEDS ORDERED: ONDANSETRON *ODT* 4 MG TABLET SL PRN (21:00)
[2022-11-29] MEDS: THIAMINE HCL 100 MG TABLET (FP) PO SCH (21:54)
[2022-11-29] MEDS: hydrOXYzine PAMOATE 25 MG CAPSULE (FP) PO PRN (21:54)
[2022-11-29] MEDS ORDERED: MELATONIN 5 MG TABLETS PO SCH (22:00)
[2022-11-29] MEDS: CLOTRIMAZOLE 1% CREAM TP SCH (23:59)
[2022-11-30] MEDS: CLOTRIMAZOLE 1% CREAM TP SCH ×2 (10:58→22:31)
[2022-11-30] MEDS: PRENATAL VITAMINS W/ FOLIC ACID TABLET (FP) PO SCH (10:58)
[2022-11-30] MEDS: NICOTINE 21 MG/24 HOURS TOPICAL PATCH TD SCH (10:59)
[2022-11-30] MEDS: hydrOXYzine PAMOATE 25 MG CAPSULE (FP) PO PRN (17:22)
[2022-11-30] MEDS ORDERED: QUEtiapine FUMARATE 50 MG TABLET PO PRN (22:00)
[2022-11-30] MEDS: THIAMINE HCL 100 MG TABLET (FP) PO SCH (22:31)
[2022-12-01] MEDS: PRENATAL VITAMINS W/ FOLIC ACID TABLET (FP) PO SCH (11:02)
[2022-12-01] MEDS: NICOTINE 21 MG/24 HOURS TOPICAL PATCH TD SCH (11:02)
[2022-12-01] MEDS: CLOTRIMAZOLE 1% CREAM TP SCH (11:03)
[2022-12-01 13:04] VITALS: BP 96/68; PULSE 100; RESP 16; TEMP 96.9
== END 2022-12-01 03:54 | disposition home or self-care (01) | DRG 897 ==
LOC: YASAS 19:42 → Y3N 21:09 → UNDOADMIN 21:09 → UNDODISIN 12-01 03:54
PROVIDERS: ADMIT Allergy & Immunology; ATTEND Surgery
PROC: HZ2ZZZZ Detoxification Services for Substance Abuse Treatment (ICD-10-PCS; principal; 2022-11-29)
DX: F10.230 Alcohol dependence with withdrawal, uncomplicated (principal); F14.20 Cocaine dependence, uncomplicated; F19.282 Other psychoactive substance dependence with psychoactive substance-induced sleep disorder; F12.20 Cannabis dependence, uncomplicated; F17.210 Nicotine dependence, cigarettes, uncomplicated; F25.0 Schizoaffective disorder, bipolar type; F31.9 Bipolar disorder, unspecified; F19.24 Other psychoactive substance dependence with psychoactive substance-induced mood disorder; G47.00 Insomnia, unspecified; B35.3 Tinea pedis; Z28.310 Unvaccinated for COVID-19; Z28.9 Immunization not carried out for unspecified reason; Z56.0 Unemployment, unspecified; Z59.00 Homelessness unspecified
CPT/HCPCS: 87811; C9803-CS; U0003; U0005